=== PATIENT | male | born 1985 | race Hispanic/Latino ===

== ENCOUNTER 2017-12-06 16:01 | Emergency (ER) | payer SELFPAY ==
[2017-12-06 16:02] VITALS: BMI 37.3
[2017-12-06 17:23] VITALS: BP 150/110; PULSE 82; RESP 18; TEMP 98.8; O2SAT 99
== END 2017-12-06 18:54 | disposition left against medical advice (07) ==
LOC: C.ER 16:01
DX: Z02.89 Encounter for other administrative examinations (principal); K62.5 Hemorrhage of anus and rectum

== ENCOUNTER 2017-12-23 21:14 | Inpatient (IN) | payer MEDICAID, SELFPAY ==
[2017-12-23 21:14] VITALS: BMI 37.3
--- NOTE | 2017-12-23 21:47 | C.PDOC ---
History Of Present Illness 32 yo male, hx of depression presents with si/ as per pt, feels like he has thought to hurt himself, but "loves life too much" to carry through . no plan. told by his pychiatrist to report to er if symptoms go worse. denies medical complaint Time Seen by Provider: 12/23/17 21:31 Chief Complaint (Nursing): Psychiatric Evaluation Past Medical History Reviewed: Historical Data, Nursing Documentation, Vital Signs Vital Signs: Last Vital Signs Temp 99.1 F 12/23/17 21:25 Pulse 99 H 12/23/17 21:25 Resp 18 12/23/17 21:25 BP 139/96 H 12/23/17 21:25 Pulse Ox 95 12/23/17 22:58 - Medical History PMH: Anxiety, Depression Denies: Chronic Kidney Disease Family History: States: Unknown Family Hx - Social History Hx Alcohol Use: No Hx Substance Use: No - Immunization History Hx Tetanus Toxoid Vaccination: No Hx Influenza Vaccination: No Hx Pneumococcal Vaccination: No Review Of Systems Except As Marked, All Systems Reviewed And Found Negative. Physical Exam - Physical Exam Eye(s): right: Other (ptyosis) ED Course And Treatment - Laboratory Results Result Diagrams: 12/23/17 22:41 12/23/17 22:41 O2 Sat by Pulse Oximetry: 95 Medical Decision Making Medical Decision Making: pending medical clearance - labs pending pt medically clear 1130: accepted to [facility]. Disposition - Disposition Disposition: HOSPITALIZED Disposition Time: 23:36 Condition: STABLE Forms: [facility] (Vietnamese) - Clinical Impression Clinical Impression: Depression Decision To Admit - Pt Status Changed To: Hospital Disposition Of: Inpatient - Admit Certification Admit to Inpatient:: After my assessment, the patient will require hospitalization for at least two midnights. This is because of the severity of symptoms shown, intensity of services needed, and/or the medical risk in this patient being treated as an outpatient. - InPatient: Physician Admission Certification: I certify that this patient requires 2 or more midnights of care for the following reason:: needs inpt pysch for si - . Bed Request Type: Psychiatry Admitting Physician: Freddy Mccarty Patient Diagnosis: Depression
[2017-12-23 22:44] LABS: BASO % 0.4 % (0.0-2.0); EOS # 0.2 K/uL (0.0-0.7); EOS % 1.6 % (0.0-4.0); HEMOGLOBIN 16.8 g/dL (12.0-18.0); LYMPH # 1.5 K/uL (1.0-4.3); LYMPH % 14.1 % (20.0-40.0); MEAN CELL VOLUME 89.3 fL (80.0-94.0); MEAN CORPUSCULAR HGB CONC 34.7 g/dL (33.0-37.0); MEAN PLATELET VOLUME 9.8 fL (7.2-11.7); MONO # 0.7 K/uL (0.0-0.8); MONO % 6.8 % (0.0-10.0); NEUT # 8.3 K/uL (1.8-7.0); NEUT % 77.1 % (50.0-75.0); NRBC % 0.1 % (0.0-2.0); RBC 5.44 Mil/uL (4.40-5.90); RED CELL DISTRIBUTION WIDTH 13.3 % (11.5-14.5); WHITE BLOOD COUNT 10.8 K/uL (4.8-10.8)
[2017-12-23 22:54] LABS: URINE BILIRUBIN NEGATIVE (NEGATIVE); URINE BLOOD NEGATIVE (NEGATIVE); URINE CLARITY Clear (Clear); URINE COLOR Yellow (YELLOW); URINE GLUCOSE (UA) NORMAL (Normal); URINE LEUKOCYTE ESTERASE NEG Leu/uL (Negative); URINE PROTEIN NEGATIVE (NEGATIVE); URINE UROBILINOGEN NORMAL mg/dL (0.2-1.0)
[2017-12-23 22:57] LABS: ALB/GLOB RATIO 1.2 (1.0-2.1); ALBUMIN 4.6 g/dL (3.5-5.0); ALT/SGPT 59 U/L (21-72); AST/SGOT 36 U/L (17-59); BLOOD UREA NITROGEN 10 mg/dL (9-20); CALCIUM 9.2 mg/dl (8.6-10.4); GFR AFRICAN-AMERICAN > 60; GFR NON-AFRICAN AMERICAN > 60
[2017-12-23 23:00] LABS: BARBITURATES, UR NEGATIVE (NEGATIVE); OPIATES, UR NEGATIVE (NEGATIVE); PHENCYCLIDINE, UR NEGATIVE (NEGATIVE)
[2017-12-23 23:01] LABS: BENZODIAZEPINES, UR POSITIVE (NEGATIVE)
--- NOTE | 2017-12-24 01:08 | PCM.BM ---
<Candy Posadas - Last Filed: 12/24/17 01:05> Treatment Plan Problems - Problems identified on initial assessmt Depresion Date Initiated: 12/24/17 Time Initiated: 12:15 Problem 2 Date Initiated: 12/24/17 Time Initiated: 12:15 Treatment assets and liabiliti Patient Assests: cooperative, educated, insightful, resourceful, self-reliant, ADL independent Patient Liabilities: live alone, financial problems, poor support system, medical problems - Milieu Protocol Maintain good personal hygiene: every shift Encourage regular showers, every shift Remind patient to perform daily oral care, every shift Assist patient to perform ADL's Maintain personal safety: daily Educate patient to report safety concerns to staff, daily Monitor environment for contraband/sharps Medication safety: Monitor for expected outcome, potential side effects: daily, Assess barriers to learning: daily, Assess readiness for medication education: daily <Tracy Winston - Last Filed: 12/25/17 11:17> Family Contact Family involvement: Family/SO is involved Family contact: Patient agrees to contact, Family meeting planned to review treatment plan, Family contacted unit to give information Family contact name: Sabrina Christiansen-girlfriend Family contacted how many times per week?: 1 - Goals for Treatment Patient goals for treatment: "I need a place to live." Discharge/Continuing Care - Education Needs Education Needs: Patient Medication, Patient Coping Skills - Discharge Discharge Criteria: Tolerates medication w/o severe side effects, Reduction of target symptoms Discharge to:: [facility] - Treatment Team Participation Discussed with Family/SO: Yes (To have family meeting today.) Was Patient/Family/SO present at Treatment Team Meeting: No <Lyudmila Paniagua - Last Filed: 12/25/17 11:30> - Diagnosis (1) Depression Status: Acute Interventions: 12/25/17 11:29 * Assess/adjust medications daily and /or as needed * See patient on an individual basis 7x/week to assess symptoms of depression * Monitor for side effects & effectiveness of medications * (2) Cannabis use disorder, moderate, dependence Status: Acute Interventions: 12/25/17 11:30 * Assess 7x/week regarding severity of withdrawal * Educate regarding risks, benefits, side effects and alternatives of medications * Use Motivational Interviewing for abstinence * Use CBT for relapse prevention * Medication management for withdrawal symptoms * Encourage medication assisted treatment *
[2017-12-24 07:05] VITALS: RESP 20
--- NOTE | 2017-12-24 11:20 | PCM.PSYCH ---
Initial Psychiatric Evaluation - Initial Psychiatric Evaluation Type of Admission: Voluntary Legal Status: Capacity History of Present Illness and Precipitating Events: The patient is seen, chart reviewed and case discussed. This is a 32-year-old male, single with no child, lives with his girlfriend and currently unemployed. The patient is here after having a fight with his girlfriend after which police was called but he was not arrested. He denies hurting her and claims it was "only a shouting match over nothing." However, since he had been depressed for over a year this incident has made him even more depressed and suicidal. He adds that he doesn't have an urge or intention to kill and never planned anything. [facility] to [facility] and sees Dr. Watson, and he is on Celexa, Wellbutrin, low dose Seroquel and Klonopin. He denies psychotic or manic symptoms but reports many depressive symptoms. Denies drugs and alcohol. Past psych history: This is his first admission and has no past suicide attempts. 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 Finally, he fell recently and hurt his foot. Family psych history: Denies Current Medications: Active Medications Generic Name Dose Route Start Last Admin Trade Name Freq PRN Reason Stop Dose Admin Bupropion HCl 150 mg 12/24/17 11:30 Wellbutrin Xl PO DAILY JOHN Citalopram Hydrobromide 20 mg 12/24/17 11:30 Celexa PO DAILY JOHN Clonazepam 0.5 mg 12/24/17 14:00 Klonopin PO TID [facility] Pneumococcal Polyvalent Vaccine 0.5 ml 12/27/17 10:00 Pneumovax 23 Vaccine IM 12/27/17 10:01 .ONCE ONE Past Psychiatric History - Past Psychiatric History Previous Treatment History: Intensive Outpatient Pertinent Medical Hx (Current Medical&Sleep Prob, Allergies): Allergies Allergy/AdvReac Type Severity Reaction Status Date / Time No Known Allergies Allergy Verified 12/23/17 21:32 Citalopram [celeXA] 20 mg PO DAILY 12/23/17 QUEtiapine [SEROquel] 25 mg PO HS 12/23/17 buPROPion [Bupropion HCl] 75 mg PO DAILY 12/23/17 cloNIDine [clonidine HCl] 0.1 mg PO BID 12/23/17 Review of Systems - Neurological Neurological: UNREMARKABLE - Psychiatric Psychiatric: Abnormal Sleep Pattern, Anhedonia, Anxiety, Depression, Difficulty Concentrating, Irritability. absent: Homicidal Ideation, Suicidal Ideation Mental Status Examination - Personal Presentation Personal Presentation: Looks stated age - Affect Affect: Constricted - Motor Activity Motor Activity: Calm - Reliability in Providing Information Reliability in Providing Information: Fair - Speech Speech: Organized - Mood Mood: Depressed, Anxious - Formal Thought Process Formal Thought Process: No Impairment - Cognitive Functions Orientation: Person, Place, Situation, Time Sensorium: Alert Attention/Concentration: Attentive Estimate of Intelligence: Average Judgement: Intact, as evidence by: Insight regarding need for hospitalization Memory: Recent intact, as evidence by: Ability to recall events of the day, Remote intact, as evidenced by: Abilit to recall sig. life events - Risk Risk: Diminished functioning - Strength & Assets Inventory Strength & Assets Inventory: Cooperative - Limitations Limitations: Other (relational problems, medical issues) DSM 5 DX - DSM 5 DSM 5 Diagnosis: Major depressive disorder, recurrent, severe, without psychosis Anxiety d/o - unspecified - Recommended/Plan of Treatment Treatment Recommendations and Plan of Treatment: Start his outpatient medications but doses are adjusted. X-ray for the foot All risks, benefits and alternatives of the meds discussed, and the pt agreed and understood. Attend groups and activities Individual therapy daily Psychoeducation and support daily Encourage compliance with meds and after care Refer to outpatient program again, add anger management Teach healthy lifestyle methods, i.e. diet, exercise, meditation Smoking cessation and patch if needed Family meeting with GF tomorrow at 11 am 32 min
[2017-12-24] MEDS ORDERED: buPROPion 150 mg/24 Hours XL Tab PO SCH (11:30)
--- NOTE | 2017-12-24 11:30 | RAD ---
PROCEDURE: Left Foot Radiographs. HISTORY: r/o fracture COMPARISON: None. FINDINGS: BONES: Normal. No fracture. JOINTS: Normal. SOFT TISSUES: Normal. OTHER FINDINGS: None. IMPRESSION: Normal left foot radiographs.
[2017-12-25 10:05] VITALS: O2SAT 98
--- NOTE | 2017-12-25 10:08 | PCM.PYCHPN ---
Mental Status Examination - Cognitive Function Orientation: Person, Place, Situation, Time - Mood Mood: Depressed, Anxious - Affect Affect: Constricted - Formal Thought Process Formal Thought Process: No Impairment - Homicidal Ideation Homicidal Ideation: No
[2017-12-25] MEDS: buPROPion 150 mg/24 Hours XL Tab PO SCH (10:48)
[2017-12-26 08:57] VITALS: BP 135/96; PULSE 101; TEMP 97.3
[2017-12-26] MEDS: buPROPion 150 mg/24 Hours XL Tab PO SCH (10:02)
--- NOTE | 2017-12-26 11:48 | PCM.PYCHDC ---
Mental Status Examination - Mental Status Examination Orientation: Person, Place, Situation, Time Memory: Intact Mood: Neutral Affect: Constricted Speech: Soft Attention: WNL Concentration: WNL Association: WNL Fund of Knowledge: WNL Formal Thought Process: No Impairment Description of patient's judgement and insight: partially impaired Psychotic Thoughts and Behaviors: denies any AVH Suicidal Ideation: No Current Homicidal Ideation?: No Discharge Summary - Discharge Note Consultations:: List each consultation separately and include: 1. Reason for request. 2. Findings. 3. Follow-up Summary of Hospital Course include:: 1. Description of specific treatment plan utilized for patients during their course of treatmen. 2. Summarize the time- course for resolution of acute symptoms and/or regressed behaviors. 3. Describe issues identified and worked on during hospitalization. 4. Describe medication utilized. 5. Describe medical problems identified and treated. 6. Reassessment of suicide risk - Diagnosis (1) Depression Current Visit: Yes Status: Acute (2) Cannabis use disorder, moderate, dependence Current Visit: Yes Status: Acute - Final Diagnosis (DSM 5) Condition upon Discharge: STABLE Disposition: AGAINST MEDICAL ADVICE Prescriptions/Medication Reconciliation: Citalopram [celEXA] 40 mg PO DAILY #30 tab QUEtiapine [Seroquel] 100 mg PO HS #30 tab
[2017-12-27] MEDS ORDERED: Pneumococcal 23-Valent Vaccine IM ONE (10:00)
[2017-12-27] MEDS ORDERED: Influenza Vaccine 60 mcg/0.5 mL SYR (4YR UP) IM ONE (10:00)
== END 2017-12-26 12:25 | disposition left against medical advice (07) | DRG 885 ==
LOC: C.ER 21:14 → C.9E 23:35 → C.5E 23:53
PROVIDERS: ADMIT Psychiatry & Neurology Psychiatry; ATTEND Psychiatry & Neurology Psychiatry
DX: F33.2 Major depressive disorder, recurrent severe without psychotic features (principal); R45.851 Suicidal ideations; F12.20 Cannabis dependence, uncomplicated; H54.8 Legal blindness, as defined in USA; F41.9 Anxiety disorder, unspecified